=== PATIENT | female | born 2000 | race American Indian/Alaskan Native ===

== ENCOUNTER 2021-11-12 15:02 | Emergency (ER) | payer SELFPAY ==
[2021-11-12 15:12] VITALS: BP 122/80
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
[2021-11-12] MEDS ORDERED: traMADol 50 MG TAB PO ONE (21:29)
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
== END 2021-11-12 22:58 | disposition home or self-care (01) ==
LOC: ED 15:02
DX: S46.912A Strain of unspecified muscle, fascia and tendon at shoulder and upper arm level, left arm, initial encounter (principal); V49.9XXA Car occupant (driver) (passenger) injured in unspecified traffic accident, initial encounter; W22.19XA Striking against or struck by other automobile airbag, initial encounter; Y93.89 Activity, other specified; Y92.89 Other specified places as the place of occurrence of the external cause; Y99.8 Other external cause status
CPT/HCPCS: 99283